=== PATIENT | male | born 1950 | race Caucasian/White ===

== ENCOUNTER → 2017-05-31 | Outpatient (CLI) | payer BC ==
[~2017-05-31] MED LIST: ASPI325T4; ATOR40TA21; INSULIN NOVOLOG; INSULIN NPH; LISI20TA11; METO-429; METOPROLOL; MTF1000T; NCN500CCR; NEBI5TAB9; RAMI5CAP23; RAMIPRIL; TAMS-14; [UNRECOGNIZED DRUG - CODE]; [UNRECOGNIZED DRUG - CODE]
[2017-05-31 08:42] LABS: ADD UMIC YES; UR ASCORBIC ACID NEGATIVE (NEGATIVE); UR BILIRUBIN (Dip) NEGATIVE (NEGATIVE); UR BLOOD (Dip) NEGATIVE (NEGATIVE); UR CLARITY CLEAR (CLEAR); UR COLOR STRAW (YELLOW); UR GLUCOSE (Dip) NEGATIVE (NEGATIVE); UR KETONES (Dip) NEGATIVE (NEGATIVE); UR LEUKOCYTE ESTERASE (Dip) NEGATIVE Leu/ul (NEGATIVE); UR NITRITE (Dip) NEGATIVE (NEGATIVE); UR RBC 0 /HPF (0-5); UR TOTAL PROTEIN (Dip) 1+ mg/dl (NEGATIVE); UR UROBILINOGEN (Dip) NEGATIVE (NEGATIVE)
[2017-05-31 08:44] LABS: BASOPHIL # 0.1 10^3/ul (0.0-0.1); BASOPHILS % 0.8 % (0.0-2.0); EOSINOPHILS # 0.7 10^3/ul (0.0-0.5); EOSINOPHILS % 10.5 % (0.0-7.0); HEMATOCRIT 48.4 % (42.0-52.0); HEMOGLOBIN 16.3 g/dl (14.0-18.0); LYMPHOCYTES # 3.1 10^3/ul (0.8-2.9); LYMPHOCYTES % 47.5 % (15.0-51.0); MEAN CORPUSCULAR HEMOGLOBIN 31.3 pg (29.0-33.0); MEAN CORPUSCULAR HGB CONC 33.7 g/dl (32.0-37.0); MEAN CORPUSCULAR VOLUME 93.1 fl (82.0-101.0); MEAN PLATELET VOLUME 9.4 fl (7.4-10.4); MONOCYTE # 0.7 10^3/ul (0.3-0.9); MONOCYTES % 10.6 % (0.0-11.0); NEUTROPHILS % 30.3 % (39.0-77.0); PLATELET COUNT 221 10^3/UL (140-415); RED CELL DISTRIBUTION WIDTH 11.7 % (11.5-14.5); WHITE BLOOD COUNT 6.5 10^3/ul (4.8-10.8)
[2017-05-31 09:23] LABS: ALBUMIN 4.1 g/dl (3.3-4.9); ALBUMIN/GLOBULIN RATIO 1.17; BILIRUBIN,INDIRECT 0.5 mg/dl (0-1.1); BILIRUBIN,TOTAL 0.5 mg/dl (0.2-1.3); CALCIUM 9.3 mg/dl (8.4-10.2); CHOL/HDL RATIO 2.8 RATIO; CREATININE 1.1 mg/dl (0.61-1.24); POTASSIUM 4.8 mmol/L (3.5-5.1); TOTAL PROTEIN 7.6 g/dl (6.1-8.1)
[2017-05-31 09:34] LABS: PROSTATE SPECIFIC ANTIGEN 1.3 ng/ml (0.0-4.0)
== END | disposition home or self-care (01) ==
LOC: LAB 06:59
PROVIDERS: ATTEND Internal Medicine
DX: E11.9 Type 2 diabetes mellitus without complications (principal); E78.5 Hyperlipidemia, unspecified; N40.0 Benign prostatic hyperplasia without lower urinary tract symptoms
CPT/HCPCS: 80053; 80061; 81001; 83036; 84153; 84154; 85025

== ENCOUNTER → 2017-08-11 | Outpatient (CLI) | payer BC ==
--- NOTE | 2017-08-12 11:07 | RADRPT ---
PROCEDURE: CT Brain without contrast. CLINICAL INDICATION: Headaches . prior surgical evacuation intracranial hemorrhage. TECHNIQUE: A CT of the brain was performed on a multidetector CT scanner utilizing axial imaging f rom the skull base through the vertex without IV contrast. Multiplanar reformatted images were made . Images were reviewed on a PACS workstation. The CTDIvol is 43 mGy and the DLP is 630 mGycm. Individualized dosed optimization technique was used for the performance of this exam. This included 1. Automated exposure control. 2. Adjustment of the mA and / or kV according to the patient's size. 3. The use of iterative reconstruction technique. COMPARISON: Head CT April 03, 2013 FINDINGS: The patient is status post bifrontal craniotomy. There is a small mixed attenuation superolateral ri ght frontal parietal subdural fluid collection measuring 6 mm in maximum transverse diameter. This w as present on the prior study and is diminished in size in the interim. No other discrete extra-axia l fluid collection or masses present. There is mild to moderate age appropriate diffuse cerebral vol ume loss with sulcal and ventricular dilatation. Ventricles are in the midline and of normal contour and configuration. There is mild periventricular white matter disease in both cerebral hemispheres. No associated mass effect is seen. There is preservation of normal hoang-white discrimination. No in tra-axial hemorrhage is present. There is opacification of scattered ethmoid air cells. IMPRESSION: Status post bifrontal craniotomy. 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 Underlying age appropriate atr ophy with mild white matter disease compatible with chronic small vessel ischemia. No acute abnormal ity. .Emanuel Crain MD, Date Time Electronically viewed and signed by .Emanuel Crain MD, on 08/12/2017 11:06 .A/
== END | disposition home or self-care (01) ==
LOC: C/S 14:40
PROVIDERS: ATTEND Internal Medicine
DX: R51 Headache (principal)
CPT/HCPCS: 70450

== ENCOUNTER 2018-02-18 22:55 | Inpatient (IN) | END 2018-02-19 18:30 | disposition EXP ==